=== PATIENT | female | born 1935 | race Caucasian/White ===

== ENCOUNTER 2017-09-24 08:50 | Inpatient (IN) | payer MEDICARE, BC ==
--- NOTE | 2017-09-24 10:06 | ERNOTE ---
Trauma/Assault HPI - General Stated Complaint: FALL Time Seen by Provider: 09/24/17 08:55 Source: patient Exam Limitations: no limitations - Immun/Allergies/Home Medications Immunizations: IMMUNIZATION HX Immunizations Up to Date Yes History of Influenza Vaccine Yes Hx Pneumococcal Vaccination Yes Allergies/Adverse Reactions: Allergies gabapentin Allergy (Severe, Verified 10/05/12 12:01) Vomiting Home Medications: HOME MEDICATIONS Aspirin [Aspirin Chewable] 81 mg PO DAILY 10/05/12 [Last Taken Unknown] Atenolol [Tenormin] 50 mg PO DAILY 10/05/12 [Last Taken Unknown] Gemfibrozil [Lopid] 600 mg PO BID 10/05/12 [Last Taken Unknown] Levothyroxine Sodium [Tirosint] 88 mcg PO DAILY 10/05/12 [Last Taken Unknown] - History of Present Illness Narrative: Patient tripped over some uneven concrete in her driveway and landed on her left hip and now has pain and is not able to bear weight. Location Occurred: Reports: home Pain Location: Reports: lower extremity Method of Injury: Reports: fall Severity: moderate Loss of Consciousness: Reports: no loss of consciousness Associated Symptoms - Trauma: Reports: denies symptoms Review of Systems - Review of Systems Constitutional: Present: no symptoms reported EYE: Present: no symptoms reported ENT: Present: no symptoms reported Respiratory: Present: no symptoms reported Cardiology: Present: no symptoms reported Gastrointestinal/Abdominal: Present: no symptoms reported Genitourinary: Present: no symptoms reported Musculoskeletal: Present: joint pain Skin: Present: no symptoms reported Neurological: Present: no symptoms reported Endocrine: Present: no symptoms reported Hematologic/Lymphatic: Present: no symptoms reported Psych: Present: no symptoms reported - Patient's Past Medical History Patient History - Medical: Hypothyroidism Patient History - Cardiac/Respiratory: Hypertension Patient History - Cancer: No Hx of Cancer Patient History - Surgical Procedures: , Orthopedic Patient History - Other: None LMP (females 10-50): Menopausal - Social History Living Situations: home Psych History: No pertinent hx Alcohol Use: none Drug Use: none - Immunizations Immunizations Up to Date: Yes Hx Pneumococcal Vaccination: Yes History of Influenza Vaccine: Yes Physical Exam - Physical Exam General Appearance: Present: wd/wn, alert, moderate distress Head Exam: Present: normal inspection, no evidence of injury Eye Exam: Normal inspection: bilateral, PERRL: bilateral Ears, Nose, Throat: Present: normal ENT inspection, H, normal pharynx Neck: Present: normal inspection, nontender Respiratory: Present: no respiratory distress, normal breath sounds, no accessory muscle use, chest nontender, lungs clear Cardiovascular/Chest: Present: regular rate, rhythm, no murmur, normal peripheral pulses Gastrointestinal/Abdominal: Present: normal bowel sounds, nontender, nondistended, soft, no organomegaly Rectal Exam: Present: deferred Back Exam: Present: normal inspection, normal range of motion Extremity Exam: Present: no edema, decreased range of motion, bony tenderness, other - left hip was turned and shortened slightly Neurological Exam: Present: alert, oriented, normal mood/affect Skin Exam: Present: normal color, warm/dry Lymphatic Exam: Present: no adenopathy ED Progress - Results and Orders Patient's Lab Results:: I have reviewed the patient's lab results. - Vital Signs Patient's Vital Signs:: I have reviewed the patient's vital signs. Vital Signs: Vital Signs 09/24/17 08:54 Temperature 36.3 C L Pulse Rate 87 Respiratory 18 Rate Blood Pressure 132/75 O2 Sat by Pulse 98 Oximetry - EKG EKG: NSR EKG read: Interp. by me - X-Ray X-Ray #1 X-Ray: chest Interpretation: Reviewed by me X-Ray #2 X-Ray: hip Interpretation: Interp. by me, Reviewed by me - Progress/Reassessment Chief Complaint: Fall Plan - Plan Plan: Patient will be admitted to a medical surgical bed for surgical correction of the left intertrochanteric fracture of the hip Departure Clinical Impression: Intertrochanteric fracture of left hip Qualifiers: Encounter type: initial encounter Fracture type: closed Fracture alignment: nondisplaced Qualified Code(s): S72.145A - Nondisplaced intertrochanteric fracture of left femur, initial encounter for closed fracture - Departure Disposition: Still a patient Condition: Fair Critical Care Time - Critical Care Critical Time Spent:: No Total time (mins) Spent:: 0
[2017-09-24 10:12] LABS: Hematocrit 38.1 % (37.0-47.0); Hemoglobin 13.4 gm/dL (12.5-16.0); Mean Cell Volume 89.6 fl (78-100); Mean Corpuscular Hemoglobin 31.5 pg (27-31); Mean Corpuscular Hgb Conc 35.2 g/dl (32-36); Mean Platelet Volume 9.5 fl (6.0-9.5); Neutrophil # 3.7 K/mm3 (1.3-6.0); Neutrophil % 69.4 % (42-75.0); Platelet Count 175 K/mm3 (150-450); Red Blood Count 4.25 M/mm3 (4.2-5.4); Red Cell Distribution Width 12.5 % (11.5-14.0); White Blood Count 5.3 K/mm3 (4.0-10.5)
[2017-09-24] MEDS ORDERED: MORPHINE SULFATE 4 MG/ML SYRG IV ONE (10:14)
[2017-09-24] MEDS ORDERED: ONDANSETRON HCL/PF 2 MG/ML VIAL IV ONE (10:14)
[2017-09-24 10:23] LABS: INR 0.98 INR (0.90-1.10); Partial Thrombolplastin Time 22.7 Seconds (24-32); Prothrombin Time (Patient) 9.8 Seconds (9.0-11.0)
[2017-09-24 10:26] LABS: Albumin * 4.2 gm/dl (3.4-5.0); Anion Gap 14.2 mmol/L (6.8-13.8); BUN/Creatinine Ratio 19.6 (9.0-21.6); Bilirubin, Total 0.5 mg/dL (0.0-1.1); Ca. Corrected For Albumin 8.7 mg/dL (8.4-10.2); Calcium * 9.2 mg/dL (7.9-10.9); Carbon Dioxide 27.3 mmol/L (24-32.6); Potassium 4.5 mmol/L (3.4-4.6); Total Protein 7.2 gm/dL (6.2-8.2)
[2017-09-24] MEDS: MORPHINE SULFATE 4 MG/ML SYRG IV PRN (12:40)
--- NOTE | 2017-09-24 13:02 | CONS ---
HPI - General Date of Service: 09/24/17 Narrative: Jaimie is an 81 yo F community ambulator who lives independently who sustained a L basicervical femoral neck fracture after tripping and falling in her driveway earlier today. She was initially evaluated in the ED where workup revealed her injury. She denies LOC or any other injury. Upon evaluation on the inpatient floor, she states that her pain is well controlled as long as she does not move. She denies any numbness or tingling in the L leg. - History of Present Illness Allergies/Adverse Reactions: Allergies gabapentin Adverse Reaction (Intermediate, Verified 09/24/17 11:20) Vomiting Home Medications: Home Medications Medication Instructions Recorded Last Taken Atenolol [Tenormin] 100 mg PO DAILY 10/05/12 09/24/17 Levothyroxine Sodium [Tirosint] 88 mcg PO 0700 10/05/12 09/24/17 Aspirin [Aspirin Chewable] 81 mg PO DAILY 09/24/17 09/24/17 Atorvastatin Calcium 10 mg PO DAILY 09/24/17 09/24/17 Lisinopril 20 mg PO DAILY 09/24/17 09/24/17 Ranitidine HCl [Zantac] 150 mg PO BID 09/24/17 09/24/17 - Patient's Past Medical History Patient History - Medical: Hypothyroidism Patient History - Cardiac/Respiratory: Hypertension Patient History - Cancer: No Hx of Cancer Patient History - Surgical Procedures: Back Surgery, , Orthopedic Patient History - Other: None LMP (females 10-50): Menopausal - Family History Mother Family History - Medical: Father Family History - Medical: Family History - Cardiac/Respiratory: Coronary Heart Disease - Social History Living Situations: home Abuse History: No History of abuse Psych History: No pertinent hx Smoking Status: Never smoker Have you smoked in the past 12 months: No Alcohol Use: none Drug Use: none - Immunizations Immunizations Up to Date: Yes Hx Pneumococcal Vaccination: Yes History of Influenza Vaccine: Yes Procedures COLONOSCOPY (08/11/03) Medications - Medications Current Medications: Current Medications Morphine Sulfate (Morphine Sulfate) 4 mg IV Q2H PRN PRN Reason: moderate pain Stop: 10/24/17 12:16 Last Admin: 09/24/17 12:40 Dose: 4 mg Review of Systems - Review of Systems Narrative: As per HPI, otherwise negative. Physical Examination - Exam Narrative: Gen: alert and oriented X4, no distress, resting comfortably Resp: breathing non-labored on RA MSK: LLE--> shortened and externally rotated, severe pain in hip with any attempted ROM, TTP over groin, foot warm and well perfused with brisk cap refill , able to flex and extend ankle and all toes with good strength, SILT throughout foot Radiology: Plain films reviewed which demonstrate a displaced L basicervical/ intertrochanteric femur fracture. Prior L4-L5 instrumented fusion noted. Vital Signs: Vital Signs - Last Taken Temp 36.5 C 09/24/17 10:51 Pulse 73 09/24/17 10:51 Resp 16 09/24/17 10:51 BP 179/82 09/24/17 10:51 Pulse Ox 97 09/24/17 10:51 O2 Oxygen Delivery Method Room Air - Results and Findings: Narrative: 81 yo F, active and healthy, with L basicervical/intertrochanteric femur fracture. - I discussed treatment option with her and given her age, activity level, and health, recommended surgical fixation with a cephalomedullary nail. I counseled her on the risks of surgery including, but not limited to, infection, bleeding, neurovascular injury, malunion/nonunion, implant failure, AVN, persistent pain, persistent weakness, rotational malalignment, arthrosis, DVT/PE , and risks with anesthesia. I discussed the nature of the surgery itself and the expected postoperative recovery and rehab. After discussion, she wishes to proceed with surgical fixation. Informed consent was obtained and the operative site marked. - bedrest - ibarra catheter - oral/IV pain meds - NPO @ midnight - continue care per Family Medicine Jerzy Castaneda MD - Assessments/Findings (1) Intertrochanteric fracture of left hip Problem: Acute Qualifiers: Encounter type: initial encounter Fracture type: closed Fracture alignment: nondisplaced Qualified Code(s): S72.145A - Nondisplaced intertrochanteric fracture of left femur, initial encounter for closed fracture
[2017-09-24] MEDS: ONDANSETRON HCL/PF 2 MG/ML VIAL IV PRN (14:35)
[2017-09-24] MEDS ORDERED: PROMETHAZINE HCL IV PRN ×2 (15:08)
[2017-09-24] MEDS ORDERED: WATER IV PRN ×2 (15:08)
[2017-09-24] MEDS ORDERED: DEXTROSE 5% IV PRN ×2 (15:08)
[2017-09-24] MEDS ORDERED: DIAZEPAM 2 MG TABLET PO PRN (16:30)
--- NOTE | 2017-09-24 19:20 | HP ---
Chief Complaint - Chief Complaint Date of Service: 09/24/17 Time of Service: 12:30 Chief Complaint: Fall, left hip pain History of Present Illness: Jaimie is an 81 yo female of usual good health who stepped out on her sidewalk this morning, tripped, and fell on her left hip. She tried to get up and immediately knew something was wrong due to the severe left hip pain. She called EMS who brought her to the [facility] ER. Xray imaging showed a comminuted left intertrochanteric fracture of the proximal hip. Jaimie reports she has otherwise been feeling healthy. She specifically denies shortness of breath, chest pain, syncope, dizziness, or other symptoms. She was given 4mg of IV morphine in the ER which helped with her pain. She reports getting leg cramps. She has these normally, but they are worse now. She normally takes an OTC leg cramping pill that helps. - Patient's Past Medical History Patient History - Medical: Hypothyroidism Patient History - Cardiac/Respiratory: Hypertension Patient History - Cancer: No Hx of Cancer Patient History - Surgical Procedures: Back Surgery, , Orthopedic Patient History - Other: None LMP (females 10-50): Menopausal - Family History Mother Family History - Medical: Father Family History - Medical: Family History - Cardiac/Respiratory: Coronary Heart Disease - Social History Living Situations: home Abuse History: No History of abuse Psych History: No pertinent hx Smoking Status: Never smoker Have you smoked in the past 12 months: No Alcohol Use: none Drug Use: none - Immunizations Immunizations Up to Date: Yes Hx Pneumococcal Vaccination: Yes History of Influenza Vaccine: Yes Review Of Systems (GEN) - Review of Systems Generalized/Overall Review: Present: No Symptoms Reported. Absent: Weakness, Chills, Fever EENTM: Present: No Symptoms Reported Respiratory: Present: No Symptoms Reported. Absent: Cough, Shortness of Breath Cardiac: Present: No Symptoms Reported. Absent: Chest Pain, Edema, Palpitations Abdominal: Present: No Symptoms Reported, Nausea. Absent: Abdominal Pain, Constipation, Diarrhea Genitourinary: Present: No Symptoms Reported Musculoskeletal: Present: Joint Pain - Left Hip after fall, Muscle Pain - Muscle cramps Skin: Present: No Symptoms Reported Immunizations: IMMUNIZATION HX Immunizations Up to Date Yes History of Influenza Vaccine Yes Hx Pneumococcal Vaccination Yes Allergies/Adverse Reactions: Allergies Allergy/AdvReac Type Severity Reaction Status Date / Time gabapentin AdvReac Intermediate Vomiting Verified 09/24/17 11:20 Home Medications: HOME MEDICATIONS Atenolol [Tenormin] 100 mg PO DAILY 10/05/12 [Last Taken 09/24/17] Levothyroxine Sodium [Tirosint] 88 mcg PO 0700 10/05/12 [Last Taken 09/24/17] Aspirin [Aspirin Chewable] 81 mg PO DAILY 09/24/17 [Last Taken 09/24/17] Atorvastatin Calcium 10 mg PO DAILY 09/24/17 [Last Taken 09/24/17] Lisinopril 20 mg PO DAILY 09/24/17 [Last Taken 09/24/17] Ranitidine HCl [Zantac] 150 mg PO BID 09/24/17 [Last Taken 09/24/17] Exam - Exam Vital Signs: Vital Signs - Last Taken Temp 36.4 C L 09/24/17 14:53 Pulse 61 09/24/17 14:53 Resp 16 09/24/17 14:53 BP 136/56 09/24/17 14:53 Pulse Ox 96 09/24/17 14:53 Constitutional: Present: Alert, Oriented x3, Cooperative ENT Exam: Present: hearing grossly normal Eye Exam: bilateral eye: normal inspection Respiratory: Present: chest non-tender, lungs clear, normal breath sounds Cardiovascular/Chest: Present: regular rate, rhythm, no murmur Abdomen: Present: Normal bowel sounds, soft, nontender, nondistended Skin Exam: Present: normal color, warm/dry, no cyanosis Neurologic: Present: unix systems administrator II-XII nml as tested, alert, normal mood/affect, oriented x 3 Appearance: Present: appropriate appearance, appropriate insight Eye contact: Present: cooperative, good eye contact, normal speech Thoughts: Present: normal thought pattern, no apparent hallucination Diagnostic Studies: Laboratory Results WBC 5.3 K/mm3 (4.0-10.5) 09/24/17 09:50 RBC 4.25 M/mm3 (4.2-5.4) 09/24/17 09:50 Hgb 13.4 gm/dL (12.5-16.0) 09/24/17 09:50 Hct 38.1 % (37.0-47.0) 09/24/17 09:50 MCV 89.6 fl (78-100) 09/24/17 09:50 MCH 31.5 pg (27-31) H 09/24/17 09:50 MCHC 35.2 g/dl (32-36) 09/24/17 09:50 RDW 12.5 % (11.5-14.0) 09/24/17 09:50 Plt Count 175 K/mm3 (150-450) 09/24/17 09:50 MPV 9.5 fl (6.0-9.5) 09/24/17 09:50 Immature Gran % (Auto) 0.60 % (0.001-0.429) H 09/24/17 09:50 Immature Gran # (Auto) 0.03 K/mm3 (0.000-0.0310) 09/24/17 09:50 Neutrophils % 69.4 % (42-75.0) 09/24/17 09:50 Lymphocytes % 15.5 % (20-51) L 09/24/17 09:50 Monocytes % 11.1 % (0.0-9) H 09/24/17 09:50 Eosinophils % 2.8 % (0.0-3.0) 09/24/17 09:50 Basophils % 0.6 % (0.0-1.0) 09/24/17 09:50 Nucleated RBC % 0.0 k/mm3 (0-1) 09/24/17 09:50 Neutrophils # 3.7 K/mm3 (1.3-6.0) 09/24/17 09:50 Lymphocytes # 0.8 k/mm3 (1.5-3.5) L 09/24/17 09:50 Monocytes # 0.6 k/mm3 (0.0-1.0) 09/24/17 09:50 Eosinophils # 0.2 k/mm3 (0.0-0.7) 09/24/17 09:50 Absolute Basophils 0.0 k/mm3 (0.0-0.1) 09/24/17 09:50 PT 9.8 Seconds (9.0-11.0) 09/24/17 09:50 INR (Anticoag Therapy) 0.98 INR (0.90-1.10) 09/24/17 09:50 PTT (Rickey) 22.7 Seconds (24-32) L 09/24/17 09:50 Sodium 133 mmol/L (132-142) 09/24/17 09:50 Plasma Sodium 133 mmol/L (130-142) 09/24/17 09:50 Potassium 4.5 mmol/L (3.4-4.6) 09/24/17 09:50 Chloride 96 mmol/L (97-106) L 09/24/17 09:50 Carbon Dioxide 27.3 mmol/L (24-32.6) 09/24/17 09:50 Anion Gap 14.2 mmol/L (6.8-13.8) H 09/24/17 09:50 BUN 19 mg/dL (3-23) 09/24/17 09:50 Creatinine 0.97 mg/dL (0.4-1.4) 09/24/17 09:50 Est GFR (Non-Af Amer) 59 mL/min (60-130) L 09/24/17 09:50 BUN/Creatinine Ratio 19.6 (9.0-21.6) 09/24/17 09:50 Random Glucose 120 mg/dL (70-110) H 09/24/17 09:50 Calcium 9.2 mg/dL (7.9-10.9) 09/24/17 09:50 Calcium Adj for Albumin 8.7 mg/dL (8.4-10.2) 09/24/17 09:50 Total Bilirubin 0.5 mg/dL (0.0-1.1) 09/24/17 09:50 AST 26 U/L (0-48) 09/24/17 09:50 ALT 27 U/L (19-67) 09/24/17 09:50 Alkaline Phosphatase 91 U/L (50-170) 09/24/17 09:50 Total Protein 7.2 gm/dL (6.2-8.2) 09/24/17 09:50 Albumin 4.2 gm/dl (3.4-5.0) 09/24/17 09:50 Blood Type A Positive 09/24/17 09:50 Antibody Screen Negative 09/24/17 09:50 Assessment/Plan - Assessment/Plan (1) Intertrochanteric fracture of left hip Assessment: Jaimie is an overall healthy 81 yo female that is admitted for comminuted left intertrochanteric proximal hip fracture. It needs surgical intervention and orthopedics were consulted for evaluation and surgical management. Morphine was effected for pain control in the ER, will continue this prn. Labs and ECG was completed and reviewed. No significant concerns. Jaimie is medically cleared for surgery. Based on revised cardiovascular risk index her risk of a cardiac event with surgery is <0.4%. Surgery is planned for tomorrow. Will manage any medical concerns and serve as attending through hospital course. Expect >1 midnight for surgical clearance, surgery, and post operative monitoring/therapy. Problem: Acute Qualifiers: Encounter type: initial encounter Fracture type: closed Fracture alignment: nondisplaced Qualified Code(s): S72.145A - Nondisplaced intertrochanteric fracture of left femur, initial encounter for closed fracture
[2017-09-25] MEDS: ONDANSETRON HCL/PF 2 MG/ML VIAL IV PRN ×2 (10:53→20:12)
[2017-09-25] MEDS: MORPHINE SULFATE 4 MG/ML SYRG IV PRN (10:56)
[2017-09-25] MEDS ORDERED: ATENOLOL 100 MG TABLET PO ONE (12:09)
--- NOTE | 2017-09-25 12:53 | PN ---
Subjective - Date and Time Seen Date: 09/25/17 Subjective Narrative: No events overnight. Patient resting comfortably in bed, pain well controlled. Objective - Vitals Vitals: Last Vital Signs Temp 36.6 C 09/25/17 11:20 Pulse 72 09/25/17 12:20 Resp 16 09/25/17 11:20 BP 120/64 09/25/17 12:20 Pulse Ox 98 09/25/17 11:20 - Exam Exam Narrative: Gen: A&Ox4, NAD Resp: breathing nonlabored on RA, normal breath sounds CV: RRR, no murmurs/rubs/gallops MSK: LLE--> pillow under thigh for support, TTP about hip, SILT throughout all nerve distributions of the foot, distal cap refill <3 sec Cauti Physician Documentation - Urinary Catheter Management Urethral (Banuelos) Date of Insertion: 09/24/17 Time of Insertion: 13:10 Assessment/Plan Plan Narrative: 81 yo F w/ L basicervical/intertrochanteric femur fracture. - to OR today for cephalomedullary fixation - NPO since midnight - pre-op ancef - continue Family Medicine co-management - dispo: continue inpatient care postoperatively with PT/OT and plan for SNF vs home with home health - Problems/Diagnosis (1) Intertrochanteric fracture of left hip Problem: Acute Qualifiers: Encounter type: initial encounter Fracture type: closed Fracture alignment: nondisplaced Qualified Code(s): S72.145A - Nondisplaced intertrochanteric fracture of left femur, initial encounter for closed fracture
[2017-09-25] MEDS ORDERED: RINGER'S SOLUTION,LACTATED 1,000 ML IV ONE ×2 (13:25→14:10)
[2017-09-25] MEDS ORDERED: ceFAZolin SODIUM 1 GM VIAL IV ONE (13:40)
[2017-09-25] MEDS ORDERED: oxyCODONE HCL/ACETAMINOPHEN 1 TAB TABLET PO PRN (14:59)
[2017-09-25] MEDS ORDERED: MORPHINE SULFATE 2 MG/ML DISP.SYRIN IV PRN (14:59)
[2017-09-25] MEDS ORDERED: ACETAMINOPHEN 500 MG TABLET PO PRN (14:59)
[2017-09-25] MEDS ORDERED: MAG HYDROX/ALUMINUM HYD/SIMETH 30 ML UDC PO PRN (14:59)
[2017-09-25] MEDS ORDERED: MAGNESIUM HYDROXIDE 30 ML UDC PO PRN (14:59)
[2017-09-25] MEDS ORDERED: diphenhydrAMINE HCL 50 MG/ML VIAL IV PRN (14:59)
--- NOTE | 2017-09-25 15:06 | OR ---
Operative Report - Dictated Report Narrative: Date: 09/25/2017 Surgeon: Jerzy Castaneda M.D. Options Trader: Cole Marc PA-C Preoperative diagnosis: Left basicervical femoral neck fracture Postoperative diagnosis: Left basicervical femoral neck fracture Operations and procedures: 1. Closed reduction, cephalo-medullary fixation left basicervical femoral neck fracture 2. Intraoperative interpretation of radiographs Anesthesia: Spinal Specimens: None Estimated blood loss: 250 Milliliters Retained implants: [employer] Trigen InterTAN 130 degree size 11.5 mm by 18 centimeter nail with 95 millimeter lag screw and 90 millimeter compression screw , with distal locking screw Complications: None Indications for procedure: Jaimie is a relatively healthy 81-year-old female who lives independently who injured the left leg after tripping and falling in her driveway. They were admitted to the hospital after being evaluated in the emergency department. Once the medical provider felt that they were stable for surgical treatment, the risks and benefits alternatives were discussed. The risks of , blood clots, bleeding, infection, nerve/tendon/blood vessel injury, malunion, nonunion , failure of implants, painful implants, arthrosis, and need for additional procedures were discussed. The extremity was marked and consent was obtained on the floor. Procedure: After marking the operative extremity on the floor, the patient was taken to the operating room. A timeout was performed. IV antibiotics consisting of 1 g of Ancef were administered. A spinal anesthetic was induced by anesthesia, and the patient was then placed onto a fracture table with a well-padded perineal post. The non-operative leg was placed in a well-padded well leg ford in lithotomy position with an SCD on the leg. The operative leg was placed in a well-padded traction boot. Longitudinal traction, internal rotation, flexion, and adduction were utilized in order to reduce the fracture. Preliminary images were attained utilizing C-arm in both the AP and lateral views. This confirmed that we had obtained adequate visualization of the fracture as well as reduction. Next the hip was then prepped and draped in a standard sterile fashion. Next, the guidewire was placed percutaneously proximal to the greater trochanter to travis a starting point at the tip of the greater trochanter centered on the lateral view. This was advanced down to the level below the lesser trochanter. A scalpel was utilized to dissect down to the greater trochanter in order to lace the soft tissue protector down to bone. The entry reamer was then advanced down the proximal femur to the level of the lesser trochanter. The above nail was then selected and impacted into place. The outrigger was utilized in order to confirm the appropriate depth of the nail. Using the alignment device on the outrigger, a benjamin incision was made over the lateral femur. Sharp dissection was carried through the iliotibial band down to the proximal femur. The guidewire was was placed into the femoral head in a center center position on AP and lateral views. A tip apex distance less than 25 mm combined was obtained. Once we felt that we had placed the guidewire in the appropriate position, it was measured. Next the compression screw entry drill was advanced through the lateral cortex. This was then drilled down to the appropriate depth for the compression screw, again confirming that we are within the confines the bone. The derotational bar was then placed and the lag screw was drilled to the appropriate depth. The lag screw was then secured in place ensuring that we were within the confines of the bone. The compression screw was then inserted allowing for compression while releasing the traction on the leg. Using C-arm this was visualized to allow for compression across the fracture site. Once it was felt we had adequately stabilized the intertrochanteric fracture, the distal interlocking screw was placed in a static position confirmed to be the appropriate length and within the nail on both AP and lateral views. The nail was secured allowing for controlled compression and the outrigger was removed. The wounds were then thoroughly irrigated. Final images were obtained. The hip was placed through range of motion and showed no crepitance. The deep fascia was closed with 0 Vicryl, the subcutaneous tissue with 3-0 Vicryl, and the skin was closed with sandra. Sterile dressings of Xeroform, 4 x 4s, and tegaderm were applied. All sponge, sharp, and instrument counts were correct prior to closing the wounds. The patient was then awoken and transferred to the postanesthesia care unit in stable condition.
[2017-09-25] MEDS ORDERED: NORMAL SALINE 1,000 ML IV PRN (15:56)
[2017-09-25] MEDS: SENNOSIDES/DOCUSATE SODIUM 1 TAB TABLET PO SCH (22:20)
--- NOTE | 2017-09-25 23:49 | PN ---
Subjective - Date and Time Seen Date: 09/25/17 Time: 08:00 Subjective Narrative: Reports no pain if she does not move her leg. No concerns. Ready for surgery. Objective - Vitals Vitals: Last Vital Signs Temp 36.8 C 09/25/17 21:32 Pulse 71 09/25/17 21:32 Resp 18 09/25/17 21:32 BP 135/56 09/25/17 21:32 Pulse Ox 100 09/25/17 21:32 - Exam Constitutional: Present: Alert, Oriented x3, Cooperative ENT Exam: Present: hearing grossly normal Respiratory: Present: lungs clear, normal breath sounds Cardiovascular/Chest: Present: regular rate, rhythm, no murmur Abdomen: Present: Normal bowel sounds, soft, nontender, nondistended Cauti Physician Documentation - Urinary Catheter Management Urethral (Banuelos) Date of Insertion: 09/24/17 Time of Insertion: 13:10 Assessment/Plan - Problems/Diagnosis (1) Intertrochanteric fracture of left hip Problem: Acute Qualifiers: Encounter type: initial encounter Fracture type: closed Fracture alignment: nondisplaced Qualified Code(s): S72.145A - Nondisplaced intertrochanteric fracture of left femur, initial encounter for closed fracture Narrative: Medically cleared for surgery which is planned for today. No medical concerns. Will manage medical treatment.
--- NOTE | 2017-09-26 05:36 | PN ---
Subjective - Date and Time Seen Date: 09/26/17 Time: 05:36 Subjective Narrative: Pt examined tonight. Pain is well controlled and has been tolerating activity well. Is hopeful for discharge home tomorrow. No other acute events. Objective - Vitals Vitals: Last Vital Signs Temp 37.2 C 09/26/17 03:32 Pulse 70 09/26/17 03:32 Resp 18 09/26/17 03:32 BP 131/53 09/26/17 03:32 Pulse Ox 98 09/26/17 03:32 - Exam Constitutional: Present: Alert, Oriented x3, Cooperative, No distress ENT Exam: Present: normal ENT inspection Neck: Present: non-tender, full range of motion, supple Breasts: Present: Exam deferred Respiratory: Present: chest non-tender, No rales, No wheezing Cardiovascular/Chest: Present: normal peripheral pulses, regular rate, rhythm, no chest tenderness, no edema Abdomen: Present: Normal bowel sounds, soft, nontender /Rectal: Present: Exam deferred Extremity: Present: normal range of motion, other - LT hip surgical site. Skin Exam: Present: warm/dry Lymphatic: Present: no adenopathy Neurologic: Present: alert, normal mood/affect, oriented x 3 Appearance: Present: appropriate appearance, appropriate insight Eye contact: Present: cooperative, good eye contact, normal speech Thoughts: Present: normal thought pattern, no apparent hallucination Cauti Physician Documentation - Urinary Catheter Management Urethral (Banuelos) Date of Insertion: 09/24/17 Time of Insertion: 13:10 Assessment/Plan - Problems/Diagnosis (1) Intertrochanteric fracture of left hip Problem: Acute Qualifiers: Encounter type: initial encounter Fracture type: closed Fracture alignment: nondisplaced Qualified Code(s): S72.145A - Nondisplaced intertrochanteric fracture of left femur, initial encounter for closed fracture Narrative: POD # 1- Continue with Ortho recommendations; pain control, PT/OT, Anticoagulation, bowel regimen,
[2017-09-26 06:14] LABS: Hematocrit 24.5 % (37.0-47.0); Hemoglobin 8.3 gm/dL (12.5-16.0); Mean Cell Volume 91.8 fl (78-100); Mean Corpuscular Hemoglobin 31.1 pg (27-31); Mean Corpuscular Hgb Conc 33.9 g/dl (32-36); Mean Platelet Volume 9.8 fl (6.0-9.5); Platelet Count 118 K/mm3 (150-450); Red Blood Count 2.67 M/mm3 (4.2-5.4); Red Cell Distribution Width 12.5 % (11.5-14.0); White Blood Count 4.1 K/mm3 (4.0-10.5)
[2017-09-26 06:19] LABS: Anion Gap 12.2 mmol/L (6.8-13.8); BUN/Creatinine Ratio 17.7 (9.0-21.6); Calcium * 7.5 mg/dL (7.9-10.9); Carbon Dioxide 24.8 mmol/L (24-32.6); Estimated Creat Clear 54.3
[2017-09-26] MEDS: oxyCODONE HCL/ACETAMINOPHEN 1 TAB TABLET PO PRN ×4 (07:22→20:55)
--- NOTE | 2017-09-26 07:44 | PN ---
Subjective - Date and Time Seen Date: 09/26/17 Time: 07:38 Subjective Narrative: She reports no acute events overnight. She notes she has pain rated at 7/10, mostly soreness. Her pain is worse with when she is up on it, better at rest. She has been sitting at the bedside, she states her pain is fairly well controlled. Objective - Vitals Vitals: Last Vital Signs Temp 36.6 C 09/26/17 05:32 Pulse 76 09/26/17 05:32 Resp 18 09/26/17 05:32 BP 136/57 09/26/17 05:32 Pulse Ox 96 09/26/17 05:32 - Abnormal Lab Findings Abnormal Lab Findings: Abnormal Lab Results 09/26/17 09/26/17 Range/Units 05:45 05:45 RBC 2.67 L (4.2-5.4) M/mm3 Hgb 8.3 L (12.5-16.0) gm/dL Hct 24.5 L (37.0-47.0) % MCH 31.1 H (27-31) pg Plt Count 118 L (150-450) K/mm3 MPV 9.8 H (6.0-9.5) fl Sodium 131 L (132-142) mmol/L Calcium 7.5 L (7.9-10.9) mg/dL - Exam Constitutional: Present: Alert, Oriented x3, Cooperative, No distress Respiratory: Present: no respiratory distress Extremity: Present: other - LLE--> bandages in place c/d/i, SILT, 5/5 FHL, EHL, PF, DF, distal pulse 2+, mild edema diffusely around thigh, ttp over proximal femur Appearance: Present: appropriate appearance Thoughts: Present: normal thought pattern Cauti Physician Documentation - Urinary Catheter Management Urethral (Banuelos) Date of Insertion: 09/24/17 Time of Insertion: 13:10 Date of Removal: 09/26/17 Time of Removal: 07:33 Assessment/Plan Plan Narrative: -81 y/o female post-op day #1 of left cephalomedullary nailing of an intertrochanteric femur fracture - WBAT with assisting device - PT/OT progress as tolerated - DVT prophy: lovenox, SCDs, timothy hose - Hgb 8.3, continue to monitor per medicine - Pain control with oral pain medication - PO diet as tolerated - Dispo: continue to progress as tolerated determine if home with home healthcare vs. SNF
[2017-09-26] MEDS ORDERED: ENOXAPARIN SODIUM 40 MG/0.4 ML SYRG SC SCH (13:59)
[2017-09-26] MEDS: SENNOSIDES/DOCUSATE SODIUM 1 TAB TABLET PO SCH (20:57)
[2017-09-27 05:15] LABS: Hematocrit 24.6 % (37.0-47.0); Hemoglobin 8.5 gm/dL (12.5-16.0); Mean Cell Volume 91.1 fl (78-100); Mean Corpuscular Hemoglobin 31.5 pg (27-31); Mean Corpuscular Hgb Conc 34.6 g/dl (32-36); Platelet Count 130 K/mm3 (150-450); Red Cell Distribution Width 12.3 % (11.5-14.0); White Blood Count 4.3 K/mm3 (4.0-10.5)
[2017-09-27 05:25] LABS: Anion Gap 11.4 mmol/L (6.8-13.8); Calcium * 7.9 mg/dL (7.9-10.9); Carbon Dioxide 29.8 mmol/L (24-32.6); Estimated Creat Clear 54.3; Potassium 4.2 mmol/L (3.4-4.6)
[2017-09-27 05:42] LABS: BUN/Creatinine Ratio 15.2 (9.0-21.6)
--- NOTE | 2017-09-27 10:15 | PN ---
Subjective - Date and Time Seen Date: 09/27/17 Time: 10:11 Subjective Narrative: Pt had one acute event where she had significant pain after walking up and down the halls and preforming stairs yesterday. She has not had any incidents since then, and has continued to ambulate. She states she is ready to go home. She has no pain at rest, mild pain with ambulation, overall pain is well controlled with oral pain medication. Objective - Vitals Vitals: Last Vital Signs Temp 36.6 C 09/27/17 06:35 Pulse 73 09/27/17 06:35 Resp 14 09/27/17 06:35 BP 118/49 09/27/17 06:35 Pulse Ox 98 09/27/17 06:35 - Abnormal Lab Findings Abnormal Lab Findings: Abnormal Lab Results 09/27/17 09/27/17 Range/Units 05:10 05:10 RBC 2.70 L (4.2-5.4) M/mm3 Hgb 8.5 L (12.5-16.0) gm/dL Hct 24.6 L (37.0-47.0) % MCH 31.5 H (27-31) pg Plt Count 130 L (150-450) K/mm3 Random Glucose 114 H (70-110) mg/dL - Exam Constitutional: Present: Alert, Oriented x3, Cooperative, No distress Respiratory: Present: no respiratory distress Extremity: Present: other - LLE--> bandages c/d/i, SILT, 5/5 knee flexion, 4+/5 knee flexion, distal pulse 2+, incision no significant drainage, mild ttp over proximal femur Thoughts: Present: normal thought pattern Cauti Physician Documentation - Urinary Catheter Management Urethral (Banuelos) Date of Insertion: 09/24/17 Time of Insertion: 13:10 Date of Removal: 09/26/17 Time of Removal: 07:33 Assessment/Plan Plan Narrative: -81 y/o female post-op day #2 of left cephalomedullary nailing of an intertrochanteric femur fracture - WBAT with assisting device - PT/OT progress as tolerated, continue home PT - DVT prophy: lovenox x 4 weeks post-op, then begin 325 ASA for 4 weeks - Hgb 8.5, stable - Pain control with oral pain medication - PO diet as tolerated - Dispo: discharge with home health for PT, f/u at 2 weeks post-op in the outpatient orthopedic office with Dr. Castaneda - Problems/Diagnosis (1) Intertrochanteric fracture of left hip Problem: Acute Qualifiers: Encounter type: initial encounter Fracture type: closed Fracture alignment: nondisplaced Qualified Code(s): S72.145A - Nondisplaced intertrochanteric fracture of left femur, initial encounter for closed fracture (2) Acute blood loss anemia Problem: Acute
[2017-09-27] MEDS: oxyCODONE HCL/ACETAMINOPHEN 1 TAB TABLET PO PRN (10:43)
[2017-09-27 10:54] VITALS: BP 142/59
--- NOTE | 2017-09-27 11:14 | DS ---
(1) Intertrochanteric fracture of left hip Problem: Acute Qualifiers: Encounter type: initial encounter Fracture type: closed Fracture alignment: nondisplaced Qualified Code(s): S72.145A - Nondisplaced intertrochanteric fracture of left femur, initial encounter for closed fracture (2) Acute blood loss anemia Problem: Acute Description of Stay: Jaimie was admitted for left intertrochanteric hip fracture after tripping on the sidewalk. She was medically cleared for surgery and her hip fracture was intraoperatively repaired. She had no complications. Following surgery she worked with PT and pain was controlled with medications. She gradually improved in strengthening. She had acute blood loss anemia from the hip fracture and surgery. This stabilized spontaneously and did not require a blood transfusion. She was discharged to home with home health for home PT. Procedures Performed: see notes below List Procedures: 09/25/17 - Left Intertrochanteric Fracture Repair Discharge Disposition: Home self care Discharge Location: Home Disposition: Home Health Service Condition: Fair Discharge Activity: Activity as tolerated Discharge Diet: General/regular food Referrals: Jerzy Castaneda MD [Staff Physician] - Two Weeks Problem Oriented Discharge Instructions to Patient/Family: Hip Fracture Additional Patient Instructions (free text): [facility] new. Please fax orders, face to face and call report upon discharge. Prescriptions (Any new or edited meds): Enoxaparin Sodium [Lovenox] 40 mg SC Q24H #28 disp.syrin oxyCODONE HCL/ACETAMINOPHEN [Percocet 5 MG/325 MG] 2 tab PO Q4H PRN #90 tablet PRN Reason: Severe Pain (Pain Scale 7-10) Sennosides/Docusate Sodium [Senokot-S] 2 tab PO HS #60 tablet Complete Home Medications List: Complete Home Medication List: Atenolol [Tenormin] 100 mg PO DAILY 10/05/12 Levothyroxine Sodium [Tirosint] 88 mcg PO 0700 10/05/12 Aspirin [Aspirin Chewable] 81 mg PO DAILY 09/24/17 Atorvastatin Calcium 10 mg PO DAILY 09/24/17 Lisinopril 20 mg PO DAILY 09/24/17 Ranitidine HCl [Zantac] 150 mg PO BID 09/24/17 Enoxaparin Sodium [Lovenox] 40 mg SC Q24H #28 disp.syrin 09/27/17 Sennosides/Docusate Sodium [Senokot-S] 2 tab PO HS #60 tablet 09/27/17 oxyCODONE HCL/ACETAMINOPHEN [Percocet 5 MG/325 MG] 2 tab PO Q4H PRN #90 tablet 09/27/17
[2017-09-27] MEDS ORDERED: FAMOTIDINE 20 MG TABLET PO SCH (21:00)
[2017-09-28] MEDS ORDERED: LEVOTHYROXINE SODIUM 88 MCG TABLET PO SCH (07:00)
[2017-09-28] MEDS ORDERED: LISINOPRIL 20 MG TABLET PO SCH (09:00)
[2017-09-28] MEDS ORDERED: ROSUVASTATIN CALCIUM 10 MG TABLET PO SCH (09:00)
[2017-09-28] MEDS ORDERED: ATENOLOL 100 MG TABLET PO SCH (09:00)
== END 2017-09-27 12:40 | disposition home health service (06) | DRG 481 ==
LOC: ER 08:50 → MS 10:12
PROVIDERS: ADMIT Family Medicine; ATTEND Family Medicine
PROC: 0QS736Z Reposition Left Upper Femur with Intramedullary Internal Fixation Device, Percutaneous Approach (ICD-10-PCS; principal; 2017-09-25)
DX: Z88.8 Allergy status to other drugs, medicaments and biological substances; Z79.82 Long term (current) use of aspirin; I10 Essential (primary) hypertension; W01.0XXA Fall on same level from slipping, tripping and stumbling without subsequent striking against object, initial encounter; S72.145A Nondisplaced intertrochanteric fracture of left femur, initial encounter for closed fracture; Y92.008 Other place in unspecified non-institutional (private) residence as the place of occurrence of the external cause; D62 Acute posthemorrhagic anemia; E03.9 Hypothyroidism, unspecified